=== PATIENT | female | born 1995 | race African-American/Black ===

== ENCOUNTER 2017-02-08 15:07 | Emergency (ER) | payer SELFPAY ==
[~2017-02-08] VITALS: Ht 162.6 cm; Wt 87.1 kg
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
--- NOTE | 2017-02-08 17:05 | RAD ---
Indication injury, pain. AP oblique and lateral views of the right knee were obtained. No bony abnormality is seen
[2017-02-08] MEDS ORDERED: HYDROcodone/APAP 5/325MG 1 TAB TABLET PO ONE (18:45)
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
[2017-02-08 19:00] VITALS: BP 130/73
[2017-02-08] MEDS ORDERED: IBUP-1060 PO (19:00)
== END 2017-02-08 19:08 | disposition home or self-care (01) ==
LOC: ER 15:07
DX: M25.561 Pain in right knee (principal); R51 Headache; S16.1XXA Strain of muscle, fascia and tendon at neck level, initial encounter; S00.81XA Abrasion of other part of head, initial encounter; J45.909 Unspecified asthma, uncomplicated; E28.2 Polycystic ovarian syndrome; V49.9XXA Car occupant (driver) (passenger) injured in unspecified traffic accident, initial encounter; Z88.6 Allergy status to analgesic agent; Y93.89 Activity, other specified; Y99.8 Other external cause status; Y92.89 Other specified places as the place of occurrence of the external cause
CPT/HCPCS: 70450; 72125; 73562; 81025; 99284-25